=== PATIENT | female | born 1990 | race Native Hawaiian/Other Pacific Islander ===

== ENCOUNTER 2020-06-10 23:34 | Emergency (ER) | payer SELFPAY ==
[2020-06-10 23:52] VITALS: BP 127/78
[2020-06-11 01:36] LABS: Amorphous Crystals,Urine Few; Bacteria,Urine 1+ /HPF (Negative); Bilirubin,Urine NEG (Negative); Blood,Urine LG (Negative); Color,Urine Yellow (Yellow); Mucus,Urine FEW /HPF; Protein,Urine <15 mg/dL mg/dL (Negative); Urobilinogen,Urine < 2.0 mg/dL (<2.0)
[2020-06-11 01:37] LABS: Basophils % (Auto) 0.4 % (0.0-1.8); Eosinophils # (Auto) 0.2 K/mm3 (0.0-0.4); Eosinophils % (Auto) 2.9 % (0.0-4.3); Hematocrit 35.9 % (30.3-42.9); Hemoglobin 11.8 gm/dl (10.1-14.3); Lymphocytes # (Auto) 2.4 K/mm3 (1.2-5.4); Lymphocytes % (Auto) 29.9 % (13.4-35.0); Mean Corpuscular HGB Conc 33 % (30-34); Mean Corpuscular Volume 80 fl (79-97); Monocytes # (Auto) 0.7 K/mm3 (0.0-0.8); Monocytes % (Auto) 8.9 % (0.0-7.3); Platelet Count 255 K/mm3 (140-440); Red Blood Count 4.49 M/mm3 (3.65-5.03); Red Cell Distribution Width 16.8 % (13.2-15.2)
[2020-06-11 01:40] LABS: RBC,Urine > 182.0 /HPF (0.0-6.0)
--- NOTE | 2020-06-11 01:49 | Emergency Department Report ---
ED General Adult HPI - General Chief complaint: Vaginal Bleeding Stated complaint: VAGINAL BLEEDING/PAIN Time Seen by Provider: 06/11/20 00:21 Source: patient Mode of arrival: Ambulatory Limitations: No Limitations - History of Present Illness Initial comments: 30-year-old female patient presents with complaints of heavy vaginal bleeding x yesterday. She states she is currently on her menstrual cycle, however she began having very heavy menstrual bleeding and is going through a tampon and a pad every hour. She reports she has history of endometriosis and abnormal vaginal bleeding. Patient states she is currently being evaluated by her [facility] for possible hysterectomy and was placed on a trial of Provera to decrease the thickness of her uterine lining. Patient reports that the last time she took Provera it caused her to have heavy vaginal bleeding similar to today's episode a couple of years ago. She denies any history of blood transfusions. She does admit to feeling a little tired, however denies any shortness of breath, dizziness, chest pain, headaches, urinary symptoms, or abdominal pain. She is not currently taking any blood thinners per patient. She does report that she is currently taking iron - Related Data Previous Rx's Medication Instructions Recorded Last Taken Type Ciprofloxacin HCl [Ciprofloxacin 500 mg PO BID 7 Days #14 tablet 10/07/19 Unknown Rx TAB] Promethazine [Phenergan] 25 mg PO Q8HR PRN #10 tab 10/07/19 Unknown Rx Sulfamethoxazole/Trimethoprim 1 each PO BID 5 Days #10 tablet 06/11/20 Unknown Rx [Bactrim DS TAB] Allergies Allergy/AdvReac Type Severity Reaction Status Date / Time Penicillins Allergy Swelling Verified 10/07/19 12:13 ED Review of Systems ROS: Stated complaint: VAGINAL BLEEDING/PAIN Other details as noted in HPI Constitutional: denies: chills, diaphoresis, fever, weakness Respiratory: denies: cough, shortness of breath Cardiovascular: denies: chest pain, palpitations, edema, syncope Gastrointestinal: denies: abdominal pain, nausea, vomiting Genitourinary: abnormal menses. denies: urgency, dysuria, frequency, discharge Skin: denies: rash, lesions Hematological/Lymphatic: denies: easy bruising, swollen glands ED Past Medical Hx - Past Medical History Previous Medical History?: Yes Additional medical history: ENDOMETROSIS/ POLY CYSTIC OVARIAN SYNDROME - Social History Smoking Status: Current Every Day Smoker Substance Use Type: None - Medications Home Medications: Home Medications Medication Instructions Recorded Confirmed Last Taken Type Ciprofloxacin HCl [Ciprofloxacin 500 mg PO BID 7 Days #14 tablet 10/07/19 Unknown Rx TAB] Promethazine [Phenergan] 25 mg PO Q8HR PRN #10 tab 10/07/19 Unknown Rx Sulfamethoxazole/Trimethoprim 1 each PO BID 5 Days #10 tablet 06/11/20 Unknown Rx [Bactrim DS TAB] ED Physical Exam - General Limitations: No Limitations General appearance: alert, in no apparent distress - Head Head exam: Present: atraumatic, normocephalic - Respiratory Respiratory exam: Absent: respiratory distress - Cardiovascular Cardiovascular Exam: Present: regular rate, normal rhythm - GI/Abdominal GI/Abdominal exam: Present: soft. Absent: distended, tenderness, guarding, rebound, rigid - Back Exam Back exam: Present: full ROM - Neurological Exam Neurological exam: Present: alert, oriented X3 - Psychiatric Psychiatric exam: Present: normal affect, normal mood - Skin Skin exam: Present: warm, dry, intact, normal color. Absent: rash ED Course Vital Signs 06/10/20 23:46 Temperature 98.1 F Pulse Rate 68 Respiratory 12 Rate Blood Pressure 127/78 O2 Sat by Pulse 98 Oximetry ED Medical Decision Making - Lab Data Result diagrams: 06/11/20 01:09 06/11/20 01:09 Lab Results 06/11/20 06/11/20 06/11/20 Range/Units 01:04 01:09 01:09 WBC 7.9 (4.5-11.0) K/mm3 RBC 4.49 (3.65-5.03) M/mm3 Hgb 11.8 (10.1-14.3) gm/dl Hct 35.9 (30.3-42.9) % MCV 80 (79-97) fl MCH 26 L (28-32) pg MCHC 33 (30-34) % RDW 16.8 H (13.2-15.2) % Plt Count 255 (140-440) K/mm3 Lymph % (Auto) 29.9 (13.4-35.0) % Motley % (Auto) 8.9 H (0.0-7.3) % Eos % (Auto) 2.9 (0.0-4.3) % Baso % (Auto) 0.4 (0.0-1.8) % Lymph # (Auto) 2.4 (1.2-5.4) K/mm3 Motley # (Auto) 0.7 (0.0-0.8) K/mm3 Eos # (Auto) 0.2 (0.0-0.4) K/mm3 Baso # (Auto) 0.0 (0.0-0.1) K/mm3 Seg Neutrophils % 57.9 (40.0-70.0) % Seg Neutrophils # 4.6 (1.8-7.7) K/mm3 PT 15.4 H (12.2-14.9) Sec. INR 1.24 H (0.87-1.13) APTT 28.1 (24.2-36.6) Sec. Sodium (137-145) mmol/L Potassium (3.6-5.0) mmol/L Chloride (98-107) mmol/L Carbon Dioxide (22-30) mmol/L Anion Gap mmol/L BUN (7-17) mg/dL Creatinine (0.6-1.2) mg/dL Estimated GFR ml/min BUN/Creatinine Ratio % Glucose (65-100) mg/dL Calcium (8.4-10.2) mg/dL Total Bilirubin (0.1-1.2) mg/dL AST (5-40) units/L ALT (7-56) units/L Alkaline Phosphatase (35-129) units/L Total Protein (6.3-8.2) g/dL Albumin (3.9-5) g/dL Albumin/Globulin Ratio % Urine Color Yellow (Yellow) Urine Turbidity Slightly-cloudy (Clear) Urine pH 7.0 (5.0-7.0) Ur Specific Luke 1.019 (1.003-1.030) Urine Protein <15 mg/dl (Negative) mg/dL Urine Glucose (UA) Neg (Negative) mg/dL Urine Ketones Neg (Negative) mg/dL Urine Blood Lg (Negative) Urine Nitrite Pos (Negative) Urine Bilirubin Neg (Negative) Urine Urobilinogen < 2.0 (<2.0) mg/dL Ur Leukocyte Esterase Neg (Negative) Urine WBC (Auto) 4.0 (0.0-6.0) /HPF Urine RBC (Auto) > 182.0 (0.0-6.0) /HPF U Epithel Cells (Auto) 1.0 (0-13.0) /HPF Urine Bacteria (Auto) 1+ (Negative) /HPF Amorphous Crystals Few Urine Mucus Few /HPF 06/11/20 Range/Units 01:09 WBC (4.5-11.0) K/mm3 RBC (3.65-5.03) M/mm3 Hgb (10.1-14.3) gm/dl Hct (30.3-42.9) % MCV (79-97) fl MCH (28-32) pg MCHC (30-34) % RDW (13.2-15.2) % Plt Count (140-440) K/mm3 Lymph % (Auto) (13.4-35.0) % Motley % (Auto) (0.0-7.3) % Eos % (Auto) (0.0-4.3) % Baso % (Auto) (0.0-1.8) % Lymph # (Auto) (1.2-5.4) K/mm3 Motley # (Auto) (0.0-0.8) K/mm3 Eos # (Auto) (0.0-0.4) K/mm3 Baso # (Auto) (0.0-0.1) K/mm3 Seg Neutrophils % (40.0-70.0) % Seg Neutrophils # (1.8-7.7) K/mm3 PT (12.2-14.9) Sec. INR (0.87-1.13) APTT (24.2-36.6) Sec. Sodium 142 (137-145) mmol/L Potassium 3.9 (3.6-5.0) mmol/L Chloride 106.3 (98-107) mmol/L Carbon Dioxide 25 (22-30) mmol/L Anion Gap 15 mmol/L BUN 10 (7-17) mg/dL Creatinine 0.7 (0.6-1.2) mg/dL Estimated GFR > 60 ml/min BUN/Creatinine Ratio 14 % Glucose 99 (65-100) mg/dL Calcium 8.9 (8.4-10.2) mg/dL Total Bilirubin < 0.20 (0.1-1.2) mg/dL AST 12 (5-40) units/L ALT 11 (7-56) units/L Alkaline Phosphatase 69 (35-129) units/L Total Protein 6.8 (6.3-8.2) g/dL Albumin 4.3 (3.9-5) g/dL Albumin/Globulin Ratio 1.7 % Urine Color (Yellow) Urine Turbidity (Clear) Urine pH (5.0-7.0) Ur Specific Luke (1.003-1.030) Urine Protein (Negative) mg/dL Urine Glucose (UA) (Negative) mg/dL Urine Ketones (Negative) mg/dL Urine Blood (Negative) Urine Nitrite (Negative) Urine Bilirubin (Negative) Urine Urobilinogen (<2.0) mg/dL Ur Leukocyte Esterase (Negative) Urine WBC (Auto) (0.0-6.0) /HPF Urine RBC (Auto) (0.0-6.0) /HPF U Epithel Cells (Auto) (0-13.0) /HPF Urine Bacteria (Auto) (Negative) /HPF Amorphous Crystals Urine Mucus /HPF - Medical Decision Making 30-year-old female patient presents with complaints of heavy vaginal bleeding x yesterday. She states she is currently on her menstrual cycle, however she began having very heavy menstrual bleeding and is going through a tampon and a pad every hour. She reports she has history of endometriosis and abnormal vaginal bleeding. Patient states she is currently being evaluated by her [facility] for possible hysterectomy and was placed on a trial of Provera to decrease the thickness of her uterine lining. Patient reports that the last time she took Provera it caused her to have heavy vaginal bleeding similar to today's episode a couple of years ago. She denies any history of blood transfusions. She does admit to feeling a little tired, however denies any shortness of breath, dizzin ess, chest pain, headaches, urinary symptoms, or abdominal pain. She is not currently taking any blood thinners per patient. She does report that she is currently taking iron Hemoglobin is normal CBC. No significant abnormalities noted on CMP. UA shows 4 WBCs and + nitrites. Will treat for UTI with Bactrim. Recommend follow-up with [facility] first thing tomorrow morning for further evaluation. Given patient's hemoglobin is stable and her vitals are normal, she is stable for discharge home. Discussed signs and symptoms that should prompt immediate return to the emergency department in detail with patient who verbalizes understanding. Patient to continue taking her iron. Also recommend high water intake. Critical care attestation.: If time is entered above; I have spent that time in minutes in the direct care of this critically ill patient, excluding procedure time. ED Disposition Clinical Impression: Abnormal vaginal bleeding UTI (urinary tract infection) Qualifiers: Urinary tract infection type: acute cystitis Hematuria presence: without hematuria Qualified Code(s): N30.00 - Acute cystitis without hematuria Disposition: TO HOME OR SELFCARE Is pt being admited?: No Condition: Stable Instructions: Urinary Tract Infection, Adult, Dysfunctional Uterine Bleeding Additional Instructions: Please follow up with your OBGYN within 2-3 days. If you develop fatigue, dizziness, chest pain, difficulty breathing, or any other new/worsening symptoms, seek immediate emergency treatment. Prescriptions: Sulfamethoxazole/Trimethoprim [Bactrim DS TAB] 1 each PO BID 5 Days #10 tablet Referrals: [facility] MD ISHAN [Primary Care Provider] - 3-5 Days
[2020-06-11 01:53] LABS: INR 1.24 (0.87-1.13)
[2020-06-11 01:54] LABS: Partial Thromboplastin Time 28.1 Sec. (24.2-36.6)
[2020-06-11 02:00] LABS: Alanine Aminotransferase 11 units/L (7-56); Albumin 4.3 g/dL (3.9-5); Blood Urea Nitrogen 10 mg/dL (7-17); Calcium 8.9 mg/dL (8.4-10.2); Hemolysis Index 4
[2020-06-11 02:03] LABS: BUN/Creatinine Ratio 14
== END 2020-06-11 02:28 | disposition home or self-care (01) ==
LOC: ED 23:34
DX: N89.8 Other specified noninflammatory disorders of vagina (principal); N39.0 Urinary tract infection, site not specified; F17.200 Nicotine dependence, unspecified, uncomplicated; Z79.899 Other long term (current) drug therapy; Z88.0 Allergy status to penicillin
CPT/HCPCS: 36415; 80053; 81001; 85025; 85610; 85730; 99283

== ENCOUNTER 2021-06-27 20:25 | Emergency (ER) | payer SELFPAY | END 2021-06-27 23:00 | disposition left against medical advice (07) | LOC: ED 20:25 | DX: R20.0 Anesthesia of skin (principal); Z53.21 Procedure and treatment not carried out due to patient leaving prior to being seen by health care provider ==